=== PATIENT | female | born 1965 | race Caucasian/White ===

== ENCOUNTER 2020-05-11 09:38 | Emergency (ER) | payer MEDICAID, SELFPAY ==
[~2020-05-11] VITALS: Ht 152.4 cm; Wt 81.6 kg
[2020-05-11 09:40] VITALS: Ht 152.4 cm; Wt 81.6 kg
[2020-05-11 11:33] VITALS: BP 142/82
== END 2020-05-11 11:33 | disposition home or self-care (01) ==
LOC: ED 09:38
DX: U07.1 COVID-19 (principal); I10 Essential (primary) hypertension; E86.0 Dehydration
CPT/HCPCS: Q0092; U0003-CS

== ENCOUNTER 2020-05-22 12:13 | Emergency (ER) | payer MEDICAID ==
[~2020-05-22] VITALS: Ht 152.4 cm; Wt 81.6 kg
[2020-05-22 12:14] VITALS: Ht 152.4 cm; Wt 81.6 kg
[2020-05-22 12:50] VITALS: BP 113/59
== END 2020-05-22 12:50 | disposition home or self-care (01) ==
LOC: ED 12:13
DX: U07.1 COVID-19 (principal); R19.7 Diarrhea, unspecified; Z00.00 Encounter for general adult medical examination without abnormal findings